=== PATIENT | male | born 1985 | race Caucasian/White ===

== ENCOUNTER 2021-07-26 22:28 | Emergency (ER) | payer MEDICAID, OTHER ==
[~2021-07-26] VITALS: Ht 170.2 cm; Wt 59.0 kg
[2021-07-26] MEDS ORDERED: HYDROCODONE/APAP 10-325 MG TABLET PO ONE (22:45)
[2021-07-26] MEDS ORDERED: HYDROCODONE/APAP 10-325 MG TABLET ONE (22:46)
[2021-07-26] MEDS ORDERED: MORPHINE SULFATE 4 MG/1 ML DISP.SYRIN IV ONE (23:00)
[2021-07-26] MEDS ORDERED: MORPHINE SULFATE 4 MG/1 ML DISP.SYRIN ONE (23:10)
[2021-07-26] MEDS ORDERED: LORAZEPAM 0.5 MG TABLET PO ONE (23:15)
--- NOTE | 2021-07-26 23:15 | NUR ---
Patient states [place] is not effective to Tx pain. ERMD made aware..
[2021-07-26] MEDS ORDERED: LORAZEPAM 1 MG TABLET ONE (23:20)
--- NOTE | 2021-07-26 23:27 | NUR ---
Patient anxious about having IV inserted. Refusing to have Hep Lock placed for IV pain. ERMD aware.
[2021-07-26] MEDS ORDERED: MORPHINE SULFATE 4 MG/1 ML DISP.SYRIN IM ONE (23:30)
[2021-07-26] MEDS ORDERED: MORPHINE SULFATE 2 MG/1 ML DISP.SYRIN ONE (23:38)
[2021-07-27] MEDS ORDERED: HYDR-4209 PO ×2 (00:11→00:45)
[2021-07-27] MEDS ORDERED: OXYCODONE HCL 5 MG TABLET ONE (00:28)
[2021-07-27] MEDS ORDERED: OXYCODONE HCL 5 MG TABLET PO ONE (00:30)
--- NOTE | 2021-07-27 00:40 | NUR ---
Patient discharged to home in stable condition with girlfriend taking patient home. Written and verbal after care instructions given. Patient verbalizes understanding of instructions. Stressed follow up or return to ER for worsening s/s.
[2021-07-27 00:49] VITALS: BP 108/75
== END 2021-07-27 00:48 | disposition home or self-care (01) ==
LOC: ER 22:33
DX: M79.671 Pain in right foot (principal); Z88.0 Allergy status to penicillin; Z91.040 Latex allergy status
CPT/HCPCS: 29515; 73610; 73630; 96372; 99284; J2270 ×2; A4663